=== PATIENT | female | born 1960 | race Caucasian/White ===

== ENCOUNTER 2017-05-30 07:11 | Day surgery (SDC) | payer OTHER ==
[2017-05-25 16:20] VITALS: BMI 19.8
[2017-05-30] MEDS ORDERED: PROPOFOL 20 ML ONE ×2 (07:23)
[2017-05-30] MEDS ORDERED: LIDOCAINE HCL/PF 2% SDV 5ML VIAL ONE (07:24)
[2017-05-30] MEDS ORDERED: GLYCOPYRROLATE 0.2 MG/1 ML VIAL ONE (08:15)
[2017-05-30 09:20] VITALS: BP 102/64; PULSE 74; TEMP 98
== END 2017-05-30 09:29 | disposition home or self-care (01) ==
LOC: FASU-ENDO 07:11
PROVIDERS: ATTEND Internal Medicine Gastroenterology
PROC: 0DJD8ZZ Inspection of Lower Intestinal Tract, Via Natural or Artificial Opening Endoscopic (ICD-10-PCS; principal; 2017-05-30 08:30)
DX: Z12.11 Encounter for screening for malignant neoplasm of colon (principal); Z80.0 Family history of malignant neoplasm of digestive organs; K57.30 Diverticulosis of large intestine without perforation or abscess without bleeding

== ENCOUNTER 2019-06-20 18:03 | Emergency (ER) | payer OTHER ==
--- NOTE | 2019-06-20 18:15 | PDOC ---
Attending Attestation - Resident Resident Name: Bekah Arndt - ED Attending Attestation I have performed the following: I have examined & evaluated the patient, The case was reviewed & discussed with the resident, I agree w/resident's findings & plan, Exceptions are as noted
[2019-06-20 18:23] VITALS: BMI 20.9
--- NOTE | 2019-06-20 18:26 | PDOC ---
History of Present Illness - General Chief Complaint: Nausea/Vomiting Stated Complaint: NAUSEA,VOMITING ,DIARRHEA SINCE YESTERDAY Time Seen by Provider: 06/20/19 18:14 - History of Present Illness Initial Comments: 06/20/19 18:26 Chief complaint: Nausea, vomiting, watery diarrhea, and crampy abdominal pain HPI: Began yesterday after eating out for 2 meals. However, no undercooked food was consumed and no suspicious food ingested. The patient has been able to take in small amounts of fluids today, and the vomiting and diarrhea have lessened, although is still present. She is still nauseated, but abdominal pain has resolved. Review of systems: Denies fever/chills, URI symptoms, sore throat, cough, chest pain, shortness of breath, hematemesis, melena, bloody stool, urinary symptoms including dysuria or frequency, vaginal bleeding or discharge. She has migraine headaches, and has begun experiencing one since this illness began. Past medical history: Elevated cholesterol, migraines, cosmetic breast surgery, "kidney surgery" as a child, but the exact nature of this was uncertain. 2 episodes of diverticulitis last year clearing with antibiotics, not requiring surgery. No other known abdominal disease. Social history: Denies tobacco alcohol or nonprescription drugs. Fully active and without disability Family history: Reviewed and noncontributory including early coronary artery disease, metabolic disease including diabetes, GI disease, and cancer Physical exam: Alert and oriented well-developed well-nourished no acute distress cheerful and cooperative Low-grade fever of 100.1, pulse 102 sat 94, BP and RR nl No pallor or icterus. PERRLA, fundi benign, ENT clear Neck supple without bruit mass or nodes Lungs clear with full breath sounds bilaterally CV regular without murmur rub or gallop pulses full and symmetric no JVD or edema no bruits 90 irregular Abdomen soft nontender without mass or organomegaly. Nondistended. Bowel sounds normal. No CVAT Neurologic intact Extremities no CCE Skin clear, no rash, adequate turgor but mucous membranes are slightly dry. Impression: Gastroenteritis, probably viral, mild dehydration due to vomiting and diarrhea Plan: IV fluids, antiemetics, baseline lab work and further evaluation treatment depending on results and response to therapy. 06/20/19 18:47 06/20/19 18:48 Past History - Past Medical History Allergies/Adverse Reactions: Allergies Allergy/AdvReac Type Severity Reaction Status Date / Time Quinolones AdvReac Intermediate Verified 06/20/19 18:06 Home Medications: Ambulatory Orders Rosuvastatin Calcium [Crestor] 5 mg PO HS 02/04/16 Ondansetron [Zofran *Odt*] 4 mg SL TID PRN #15 od.tablet 06/20/19 Anemia: No Asthma: No Cancer: No Cardiac Disorders: No CVA: No COPD: No CHF: No Dementia: No Diabetes: No GI Disorders: Yes (DIVERTICULITIS) Disorders: No HTN: No Hypercholesterolemia: Yes Liver Disease: No Seizures: No Thyroid Disease: No Other medical history: MIGRAINE - Surgical History Abdominal Surgery: No Appendectomy: No Cardiac Surgery: No Cholecystectomy: No Lung Surgery: No Neurologic Surgery: No Orthopedic Surgery: No - Psycho Social/Smoking Cessation Hx Smoking History: Never smoked Information on smoking cessation initiated: No Hx Alcohol Use: Yes (RARELY SOCIAL) Drug/Substance Use Hx: No Substance Use Type: Alcohol Hx Substance Use Treatment: No *Physical Exam - Vital Signs Last Vital Signs Temp Pulse Resp BP Pulse Ox 100.1 F H 102 H 16 123/75 94 L 06/20/19 18:05 06/20/19 18:05 06/20/19 18:05 06/20/19 18:05 06/20/19 18:05 ED Treatment Course - LABORATORY CBC & Chemistry Diagram: 06/20/19 18:45 06/20/19 18:45 Medical Decision Making - Medical Decision Making 06/23/19 09:05 Patient signed out to Dr. Soto in stable condition, 7 PM, pending lab results and further treatment. Discharge - Discharge Information Problems reviewed: Yes Clinical Impression/Diagnosis: Acute gastroenteritis Condition: Improved Disposition: HOME - Admission No - Additional Discharge Information Prescriptions: Ondansetron [Zofran *Odt*] 4 mg SL TID PRN #15 od.tablet PRN Reason: Nausea And/Or Vomiting - Follow up/Referral - Patient Discharge Instructions Patient Printed Discharge Instructions: DI for Diarrhea and Traveler's Diarrhea -- Adult, DI for Nausea -- Adult, DI for Vomiting -- Adult - Post Discharge Activity
[2019-06-20] MEDS ORDERED: SODIUM CHLORIDE 1,000 ML IV STA (18:33)
[2019-06-20] MEDS ORDERED: ONDANSETRON 4 MG/2 ML VIAL IVPB ONE (18:34)
[2019-06-20] MEDS ORDERED: FAMOTIDINE 20 MG/50 ML IVPB 20 MG/50 ML MG IVPB ONE ×2 (18:34→18:39)
[2019-06-20] MEDS ORDERED: ONDANSETRON 4 MG/2 ML VIAL ONE (18:40)
[2019-06-20] MEDS ORDERED: ACETAMINOPHEN 1000 MG/100 ML VIAL (NON FORMULARY) IVPB ONE (18:49)
[2019-06-20] MEDS ORDERED: ACETAMINOPHEN INJECTION 100 ML IVPB ONE (18:57)
[2019-06-20 19:01] LABS: HEMATOCRIT 43.7 % (32.4-45.2); HEMOGLOBIN 14.5 GM/dl (10.7-15.3); MCH 29.3 pg (25.7-33.7); MCHC 33.1 g/dl (32.0-36.0); MEAN CELL VOLUME 88.5 fl (80-96); MEAN PLT VOLUME 8.9 fl (7.5-11.1); PLATELET COUNT 223 K/MM3 (134-434); RBC 4.95 M/mm3 (3.60-5.2); RDW 13.5 % (11.6-15.6)
[2019-06-20 19:11] LABS: ALBUMIN 4.2 g/dl (3.4-5.0); BILIRUBIN,TOTAL 0.9 mg/dl (0.2-1); CALCIUM 8.9 mg/dl (8.5-10); CREATININE 0.8 mg/dl (0.55-1.3); POTASSIUM 4.2 mmol/L (3.5-5.1); TOT PROT 7.1 g/dl (6.4-8.2)
[2019-06-20 19:34] LABS: PLATELET ESTIMATE ADEQUATE
[2019-06-20 20:30] VITALS: TEMP 98.8
[2019-06-20] MEDS ORDERED: SODIUM CHLORIDE 1,000 ML IV ONE (20:55)
[2019-06-20 21:55] VITALS: BP 93/57; PULSE 81
== END 2019-06-20 21:57 | disposition home or self-care (01) ==
LOC: FER 18:03
PROC: 3E033NZ Introduction of Analgesics, Hypnotics, Sedatives into Peripheral Vein, Percutaneous Approach (ICD-10-PCS; principal; 2019-06-20)
PROC: 3E033GC Introduction of Other Therapeutic Substance into Peripheral Vein, Percutaneous Approach (ICD-10-PCS; 2019-06-20)
PROC: 3E0337Z Introduction of Electrolytic and Water Balance Substance into Peripheral Vein, Percutaneous Approach (ICD-10-PCS; 2019-06-20)
DX: K52.9 Noninfective gastroenteritis and colitis, unspecified (principal); E78.00 Pure hypercholesterolemia, unspecified; K57.92 Diverticulitis of intestine, part unspecified, without perforation or abscess without bleeding
CPT/HCPCS: 36415; 80053; 85025; 99283-25; J0131; J7030